=== PATIENT | female | born 1965 ===

== ENCOUNTER 2021-08-19 15:02 | Emergency (ER) | payer BC, OTHER ==
[~2021-08-19] VITALS: Ht 157.5 cm; Wt 93.0 kg
[2021-08-19 15:21] VITALS: BP_DIAS 97
[2021-08-19 16:12] LABS: Basophils # (auto) 0.1 10 ^3/uL (0-0.2); White Blood Cell 9.6 10^3/uL (4.4-10.8)
[2021-08-19 16:14] LABS: Basophils % (auto) 0.6 % (0.0-2.0); Eosinophils # (auto) 0.1 10 ^3/uL (0-0.8); Eosinophils % (auto) 1.4 % (0.0-7.0); Hematocrit 45.1 % (36.0-46.0); Hemoglobin 14.9 g/dL (12.2-16.2); Lymphocytes # (auto) 3.5 10 ^3/uL (0.4-5.4); Lymphocytes % (auto) 35.9 % (10.0-50.0); Mean Corpuscular Hemoglobin 27.1 pg (28.0-32.0); Mean Corpuscular Volume 82.1 fL (80.0-100.0); Monocytes # (auto) 0.8 10 ^3/uL (0-1.3); Monocytes % (auto) 7.9 % (0.0-12.0); Neutrophils # (auto) 5.2 10 ^3/uL (1.6-8.6); Neutrophils % (auto) 54.2 % (37.0-80.0); Nucleated Red Blood Cells % 0.2 %; Red Cell Distribution Width 13.9 % (11.8-14.3)
[2021-08-19] MEDS ORDERED: LOSA100T25 PO (16:22)
[2021-08-19 16:30] LABS: Albumin 3.7 g/dL (3.4-5.0); Calcium 9.1 mg/dL (8.5-10.1); Magnesium 2.2 mg/dL (1.6-2.6); Potassium 3.5 mmol/L (3.5-5.1)
[2021-08-19 16:36] LABS: BUN/Creatinine Ratio 6.7; Bilirubin, Total 0.4 mg/dL (0.2-1.0)
[2021-08-19] MEDS ORDERED: cloNIDine HCL 0.1 MG TAB PO ONE (17:30)
[2021-08-19 19:18] VITALS: BP_SYST 85
[2021-08-19 20:32] LABS: Urine Bacteria FEW /hpf (None Seen); Urine Blood Negative /uL (Negative); Urine WBC 2 /hpf (0 - 5)
== END 2021-08-19 19:19 | disposition home or self-care (01) ==
LOC: ER 15:02
DX: I16.0 Hypertensive urgency (principal); I10 Essential (primary) hypertension
CPT/HCPCS: 36415; 71046; 80053; 81001; 83735; 84484; 85025; 93005